=== PATIENT | female | born 1990 | race Caucasian/White ===

== ENCOUNTER 2019-04-11 12:25 | Emergency (ER) | payer MEDICAID, OTHER ==
[~2019-04-11] VITALS: Ht 149 cm; Wt 82.7 kg
[2019-04-11 13:08] LABS: BILIRUBIN,URINE NEGATIVE (NEGATIVE); CLARITY,URINE CLEAR; COLOR,URINE YELLOW; GLUCOSE, URINE (UA) NEGATIVE (NEGATIVE); KETONES,URINE NEGATIVE (NEGATIVE); LEUKOCYTE ESTERASE ,URINE 1+ (NEGATIVE); NITRITE,URINE POSITIVE (NEGATIVE); PH,URINE 5.5 (5-9); PROTEIN,URINE NEGATIVE (NEGATIVE)
[2019-04-11 13:50] LABS: BACTERIA,URINE LARGE /HPF; RBC,URINE 25-50 /HPF; WBC,URINE 25-50 /HPF
[2019-04-11] MEDS ORDERED: ONDANSETRON 4 MG (ZOFRAN) ORAL DISSOLVE TAB SL STA (13:50)
[2019-04-11] MEDS ORDERED: SULF1TAB35 PO (14:25)
--- NOTE | 2019-04-11 14:26 | ED GU-Female ---
General Chief Complaint: - Urinary Stated Complaint: KIDNEY PAIN Nursing Triage Note: RIGHT SIDED KIDNEY PAIN X2 DAYS. Nursing Sepsis Screen: No Definite Risk History of Present Illness Date Seen by Provider: Apr 11, 2019 Time Seen by Provider: 12:45 Initial Comments 28-year-old female presents with right lower abdomen and flank pain. She's had a history of kidney stones in the past. She denies any vomiting but some nausea today. She has tried Tylenol and ibuprofen with no improvement in her symptoms. Timing/Duration: yesterday Severity/Quality: mild Radiation: none Associated Symptoms: abdominal pain, dysuria; No fever/chills, No loss of bladder control; lower back pain (right flank), nausea/vomiting; No nocturia, No polyuria, No urinary frequency Allergies and Home Medications Allergies Coded Allergies: amoxicillin (Verified Allergy, Unknown, 04/11/19) oxycodone (Verified Allergy, Unknown, HIVES, 04/11/19) bismuth subsalicylate (Verified Adverse Reaction, Unknown, LIPS TURNED BLUE AND VOMITING, 04/11/19) ciprofloxacin (Verified Adverse Reaction, Unknown, VOMITING, 04/11/19) Home Medications Sulfamethoxazole/Trimethoprim 1 Each Tablet, 1 EACH PO BID Prescribed by: KRISH CLAY on 04/11/19 1345 Patient Home Medication List Home Medication List Reviewed: Yes Review of Systems Review of Systems Constitutional: no symptoms reported, see HPI Genitourinary: see HPI, dysuria, flank pain; denies hematuria All Other Systemes Reviewed Negative Unless Noted: Yes Past Balixsh-Rzpsby-Knercl Hx Past Med/Social Hx: Reviewed Nursing Past Med/Soc Hx Patient Social History Alcohol Use: Denies Use Recreational Drug Use: No Smoking Status: Never a Smoker Recent Foreign Travel: No Contact w/Someone Who Travel: No Recent Infectious Disease Expo: No Recent Hopitalizations: No Seasonal Allergies Seasonal Allergies: No Past Medical History Surgeries: Yes (D&C) Respiratory: No Cardiac: Yes Hypertension Neurological: No Genitourinary: Yes (INTERSTEM THERAPY ON BLADDER) Kidney Stones, UTI-Chronic Gastrointestinal: No Musculoskeletal: No Endocrine: No HEENT: No Cancer: No Psychosocial: No Physical Exam Vital Signs Vital Signs - First Documented 04/11/19 12:40 Temp 36.9 Pulse 86 Resp 16 B/P (MAP) 140/100 (113) Pulse Ox 98 O2 Delivery Room Air Capillary Refill : Less Than 3 Seconds Height, Weight, BMI Height: '" Weight: lbs. oz. kg; 37.00 BMI Method: General Appearance: WD/WN, no apparent distress Neck: non-tender, full range of motion, supple, normal inspection Cardiovascular: normal peripheral pulses, regular rate, rhythm Respiratory: chest non-tender, lungs clear, normal breath sounds Gastrointestinal: normal bowel sounds, non tender, soft; No distended, No guarding, No rebound, No tenderness Back: normal inspection, CVA tenderness (R) Neurologic/Psychiatric: no motor/sensory deficits, alert, normal mood/affect, oriented x 3 Progress/Results/Core Measures Suspected Sepsis Recent Fever Within 48 Hours: No Infection Criteria Present: Suspected New Infection New/Unexplained Altered Menta: No Sepsis Screen: No Definite Risk SIRS Temperature: Pulse: 86 Respiratory Rate: 16 Blood Pressure 140 /100 Mean: 113 Results/Orders Lab Results Laboratory Tests Test 04/11/19 12:55 Range/Units Urine Color YELLOW Urine Clarity CLEAR Urine pH 5.5 5-9 Urine Specific [place] >=1.030 1.016-1.022 Urine Protein NEGATIVE NEGATIVE Urine Glucose (UA) NEGATIVE NEGATIVE Urine Ketones NEGATIVE NEGATIVE Urine Nitrite POSITIVE H NEGATIVE Urine Bilirubin NEGATIVE NEGATIVE Urine Urobilinogen 0.2 < = 1.0 MG/DL Urine Leukocyte Esterase 1+ H NEGATIVE Urine RBC (Auto) NEGATIVE NEGATIVE Urine RBC 25-50 H /HPF Urine WBC 25-50 H /HPF Urine Crystals NONE /LPF Urine Bacteria LARGE H /HPF Urine Casts NONE /LPF Urine Mucus NEGATIVE /LPF Urine Culture Indicated YES My Orders Orders - KRISH CLAY Ua Culture If Indicated (04/11/19 12:31) Ondansetron Oral Dissolve Tab (Zofran (04/11/19 13:50) Abdomen/Kub 1view (04/11/19 13:51) Urine Culture (04/11/19 12:55) Vital Signs/I&O 04/11/19 04/11/19 12:40 14:39 Temp 36.9 36.9 Pulse 86 86 Resp 16 16 B/P (MAP) 140/100 (113) 140/100 (113) Pulse Ox 98 98 O2 Delivery Room Air Capillary Refill : Less Than 3 Seconds Blood Pressure Mean: 113 Diagnostic Imaging Diagonstic Imaging: Xray Plain Films/CT/US/NM/MRI: abdomen Comments NAME: KRISH AVINA [facility] REC#: [id number] PT STATUS: DEP ER : 1990 PHYSICIAN: KRISH CLAY ADMIT DATE: 04/11/19/ER Draft Date of Exam:04/11/19 ABDOMEN/KUB 1VIEW INDICATION: Kidney pain. EXAMINATION: Abdomen, two views, 04/11/2019. FINDINGS: There is a stimulator device overlying the right aspect of the pelvis. Air and stool is seen throughout the colon. No dilated loops of bowel. No free air. If there is concern for renal stones or ureteral stones CT imaging recommended. IMPRESSION: Nonobstructive bowel gas pattern, as above. Please see above discussion. Dictated on workstation # [id number] Dict: 04/11/19 1657 Trans: 04/11/19 1739 [facility] [id number] Interpreted by: MEJIA RIVERA MD Electronically signed by: Departure Impression Primary Impression: Urinary tract infection Qualified Codes: N30.01 - Acute cystitis with hematuria Disposition: HOME, SELF-CARE Condition: Improved Departure-Patient Inst. Decision time for Depature: 14:15 Referrals: NO,LOCAL PHYSICIAN (PCP/Family) Primary Care Physician Patient Instructions: Urinary Tract Infection, Adult (DC) Add. Discharge Instructions: Take antibiotics as prescribed. Drink 16 ounces of water every 2 hours while awake Empty bladder every 2 hours while awake. Alternate between ibuprofen 600 mg and Tylenol 650 mg every 4 hours for pain or fever. Drink 1 cup of cranberry juice or eat 1 cup of fresh blueberries daily. Follow-up with your primary care provider if symptoms are not improving or worsen. Return to the emergency department for new, urgent health care needs. All discharge instructions reviewed with patient and/or family. Voiced understanding. Scripts Sulfamethoxazole/Trimethoprim (Bactrim Ds Tablet) 1 Each Tablet 1 EACH PO BID, #10 TAB Prov: KRISH CLAY 04/11/19 KRISH CLAY Apr 11, 2019 14:26
[2019-04-11 14:39] VITALS: BP 140/100
--- NOTE | 2019-04-11 17:40 | Diagnostic Imaging Report ---
INDICATION: Kidney pain. EXAMINATION: Abdomen, two views, 04/11/2019. FINDINGS: There is a stimulator device overlying the right aspect of the pelvis. Air and stool is seen throughout the colon. No dilated loops of bowel. No free air. If there is concern for renal stones or ureteral stones CT imaging recommended. IMPRESSION: Nonobstructive bowel gas pattern, as above. Please see above discussion. Dictated by: Dictated on workstation # [id number]
== END 2019-04-11 14:39 | disposition home or self-care (01) ==
LOC: ER 12:28
DX: N39.0 Urinary tract infection, site not specified (principal); Z88.0 Allergy status to penicillin; Z88.5 Allergy status to narcotic agent; Z88.1 Allergy status to other antibiotic agents; Z88.8 Allergy status to other drugs, medicaments and biological substances; Z87.442 Personal history of urinary calculi
CPT/HCPCS: 74018; 81000; 84703; 87088; 87186

== ENCOUNTER 2019-06-07 19:16 | Emergency (ER) | payer MEDICAID ==
[~2019-06-07] VITALS: Ht 150 cm; Wt 84.7 kg
[~2019-06-07 19:16] MED LIST: SULF1TAB35 PO
--- OUTSIDE RECORDS SUMMARY | 2019-06-07 19:21 | XMS REPORT | Continuity of Care Document ---
Author Organization Unknown Address Unknown Phone Unavailable Allergies Active Description Code Type Severity Reaction Onset Reported/Identified Relationship to Patient Clinical Status Yes amoxicillin [id number] Drug Aller gy Unknown N/A 04/11/2019 Yes bismuth subsalicylate [id number] Drug Allergy Unknown LIPS TURNED [place] 10/2019 Yes ciprofloxacin [id number] Suman g Allergy Unknown VOMITING 04/11/2019 Yes oxycodone [id number] Drug Allergy Unknown HIVES 04/11/2019 Medications There is no data. Problems Date Dx Coded Attending Type Code Diagnosis Diagnosed By 04/15/2019 KRISH CLAY Ot N39.0 URINARY TRACT INFECTION, SITE NOT SPECIF 04/15/2019 KRISH CLAY Ot R10.31 RIGHT LOWER QUADRANT PAIN 04/15/2019 KRISH CLAY Ot Z87.442 PERSONAL HISTORY OF URINARY CALCULI 04/15/2019 KRISH CLAYP Ot Z88.0 ALLERGY STATUS TO PENICILLIN 04/15/2019 KRISH CLAYP Ot Z88.1 ALLERGY STATUS TO OTHER ANTIBIOTIC AGENT 04/15/2019 KRISH CLAYP Ot Z88.5 ALLERGY STATUS TO NARCOTIC AGENT STATUS 04/15/2019 KRISH CLAYP Ot Z88.8 ALLERGY STATUS TO OTH DRUG/MEDS/BIOL SUB Procedures There is no data. Results Test Result Range Complete urinalysis with reflex to cultu re - 04/11/19 12:55 Urine color determination YELLOW NRG Urine clarity determination CLEAR NR G Urine pH measurement by test strip 5.5 5-9 Specific gravity of urine by test strip >= 1.016-1.022 Urine protein assay by test strip, semi-quantitative NEGATIVE NEGATIVE Urine glucose detection by automated test strip NE GATIVE NEGATIVE Erythrocytes detection in urine sediment by light micr oscopy NEGATIVE NEGATIVE Urine ketones detection by automated test strip NE GATIVE NEGATIVE Urine nitrite detection by test strip POSITIVE NEGATIVE Urine total bilirubin detection by test strip NEGA TIVE NEGATIVE Urine urobilinogen measurement by automated test strip (mass/volume) 0.2 mg/dL < = 1.0 Urine leukocyte esterase detection by dipstick 1+ NEGATIVE Automated urine sediment erythrocyte cou nt by microscopy (number/high power field) [HPF] NRG Automated urine sediment leukocyte count by microscopy (number/high power field) [HPF] NRG Bacteria detection in urine sediment by light microsco py LARGE NRG Crystals detection in urine sediment by light microsco py NONE NRG Casts detection in urine sediment by light microscopy NONE NRG Mucus detection in urine sediment by light microscopy NEGATIVE NRG Complete urinalysis with reflex to culture YES NRG Bacterial urine culture - 04/11/19 12:55 Bacterial urine culture [id number] NRG COLONY COUNT >100,000/ML NRG FTX;REPORTABLE SUSCEPTIBILITY REPORTED 04/14 10:50 NRG FREE TEXT ENTRY 2 PRELIM RAPID ID TEST AT [facility] 04/12 9:40 NRG FREE TEXT ENTRY 3 ID CONFIRMED BY RML 04/13 17:05 NRG Dirithromycin susceptibility test by dis k diffusion - 04/11/19 12:55 Gentamicin susceptibility test by minimum inhibitory c oncentration <= NRG Trimethoprim/sulfamethoxazole susceptibi lity test by minimum inhibitoryconcentration > NRG Levofloxacin susceptibility test by minimum inhibitory concentration <= NRG Ampicillin susceptibility test by minimum inhibitory c oncentration > NRG Cefazolin susceptibility test by minimum inhibitory co ncentration 16 NRG Ceftriaxone susceptibility test by minimum inhibitory concentration <= NRG Ciprofloxacin susceptibility test by minimum inhibitor y concentration <= NRG Meropenem susceptibility test by minimum inhibitory co ncentration <= NRG Nitrofurantoin susceptibility test by mi nimum inhibitory concentration <= NRG Amoxicillin and clavulanate potassium susc MARII = NRG Encounters ACCT No. Visit Date/Time Discharge Status Pt. Type Provider Facility Loc./Unit Complaint [id number] 04/11/2019 12:28:00 020 14:39:00 DIS Outpatient KRISH CLAY [facility] ER KIDNEY PAIN
[2019-06-07 19:23] VITALS: BP 143/92
--- NOTE | 2019-06-07 19:39 | ED Lower Extremity ---
General Chief Complaint: Lower Extremity Stated Complaint: L KNEE PAIN History of Present Illness Date Seen by Provider: Jun 07, 2019 Time Seen by Provider: 19:25 Initial Comments 28-year-old female presents for left knee pain. She states that she's had chronic issues with her left knee, since childhood. Today it began hurting worse over the medial joint line, she tried ibuprofen at and Tylenol at 1600, with no relief in her symptoms. Straight he ice with no improvement. She denies any injuries today. Onset: this morning Pain/Injury Location: left knee Method of Injury: unknown Allergies and Home Medications Allergies Coded Allergies: amoxicillin (Verified Allergy, Unknown, 04/11/19) oxycodone (Verified Allergy, Unknown, HIVES, 04/11/19) bismuth subsalicylate (Verified Adverse Reaction, Unknown, LIPS TURNED BLUE AND VOMITING, 04/11/19) ciprofloxacin (Verified Adverse Reaction, Unknown, VOMITING, 04/11/19) Home Medications No Active Prescriptions or Reported Meds Patient Home Medication List Home Medication List Reviewed: Yes Review of Systems Constitutional: no symptoms reported, see HPI Musculoskeletal: see HPI, joint pain (left knee), joint swelling All Other Systems Reviewed Negative Unless Noted: Yes Past Cpabuxc-Wzvnya-Wvoqnu Hx Past Med/Social Hx: Reviewed Nursing Past Med/Soc Hx Patient Social History Alcohol Use: Denies Use Recreational Drug Use: No 2nd Hand Smoke Exposure: No Recent Foreign Travel: No Contact w/Someone Who Travel: No Recent Hopitalizations: No Physical Abuse: No Sexual Abuse: No Mistreated: No Fear: No Immunizations Up To Date Tetanus Booster (TDap): Unknown Seasonal Allergies Seasonal Allergies: No Past Medical History Surgeries: Yes (D&C) Orthopedic Respiratory: No Cardiac: Yes Hypertension Neurological: No Genitourinary: Yes Kidney Stones, UTI-Chronic Gastrointestinal: No Musculoskeletal: No Endocrine: No HEENT: No Cancer: No Psychosocial: No Integumentary: No Blood Disorders: No Physical Exam Vital Signs Vital Signs - First Documented 06/07/19 19:23 Temp 36.5 Pulse 79 Resp 16 B/P (MAP) 143/92 (109) Pulse Ox 99 O2 Delivery Room Air Capillary Refill : Height, Weight, BMI Height: '" Weight: lbs. oz. kg; 37.00 BMI Method: General Appearance: WD/WN, no apparent distress Cardiovascular: normal peripheral pulses, regular rate, rhythm Respiratory: chest non-tender, lungs clear, normal breath sounds Knees: left knee normal inspection, left knee normal range of motion, left knee bone tenderness (medial joint line), left knee joint effusion (small), left knee soft tissue tenderness (medial) Neurologic/Psychiatric: no motor/sensory deficits, alert, normal mood/affect, oriented x 3 Skin: normal color, warm/dry Progress/Results/Core Measures Results/Orders My Orders Orders - KRISH CLAY Knee, Left, 3 Views (06/07/19 19:30) Ketorolac Injection (Toradol Injection) (06/07/19 19:41) Vital Signs/I&O 06/07/19 19:23 Temp 36.5 Pulse 79 Resp 16 B/P (MAP) 143/92 (109) Pulse Ox 99 O2 Delivery Room Air Diagnostic Imaging Diagonstic Imaging: Xray Plain Films/CT/US/NM/MRI: knee Comments NAME: KRISH AVINA [facility] REC#: [id number] PT STATUS: REG ER : 1990 PHYSICIAN: KRISH CLAY ADMIT DATE: 06/07/19/ER Signed Date of Exam:06/07/19 KNEE, LEFT, 3 VIEWS INDICATION: Left knee pain. EXAMINATION: Three views of the left knee. FINDINGS: Nonweightbearing images. There is no fracture or dislocation. Articulating surfaces are smooth. Joint space is well maintained. No evidence of osteochondritis dissecans. IMPRESSION: Negative left knee. Dictated by: Dictated on workstation # [id number] Dict: 06/07/191955 Trans: 06/07/192005 [id number] Interpreted by: VISH ANDERSON MD Electronically signed by: VISH ANDERSON MD 06/07/192005 Reviewed: Reviewed by Me Departure Impression Primary Impression: Left knee pain Qualified Codes: M25.562 - Pain in left knee Disposition: HOME, SELF-CARE Condition: Improved Departure-Patient Inst. Decision time for Depature: 20:05 Referrals: [facility] [place] NO,LOCAL PHYSICIAN (PCP) Primary Care Physician IRMA YUAN MD Patient Instructions: Knee Pain (DC) Add. Discharge Instructions: Alternate between ibuprofen 600 mg and Tylenol 650 mg every 4 hours for pain. Ice to left knee 20 minutes every 2 hours while awake. Follow-up with orthopedics if symptoms are not improving or worsen. Use an [place] wrap. Return to the emergency department for new, urgent health care needs. All discharge instructions reviewed with patient and/or family. Voiced understanding. Scripts No Active Prescriptions or Reported Meds KRISH CLAY Jun 07, 2019 19:39
[2019-06-07] MEDS ORDERED: KETOROLAC 60 MG/2 ML VIAL IM STA (19:41)
--- NOTE | 2019-06-07 19:58 | Diagnostic Imaging Report ---
INDICATION: Left knee pain. EXAMINATION: Three views of the left knee. FINDINGS: Nonweightbearing images. There is no fracture or dislocation. Articulating surfaces are smooth. Joint space is well maintained. No evidence of osteochondritis dissecans. IMPRESSION: Negative left knee. Dictated by: Dictated on workstation # [id number]
== END 2019-06-07 20:19 | disposition home or self-care (01) ==
LOC: EDUNIT# 19:16 → ER 19:17
DX: M25.562 Pain in left knee (principal); Z88.0 Allergy status to penicillin; Z88.5 Allergy status to narcotic agent; Z88.1 Allergy status to other antibiotic agents; Z88.8 Allergy status to other drugs, medicaments and biological substances
CPT/HCPCS: 73562

== ENCOUNTER 2019-07-15 22:08 | Emergency (ER) | payer MEDICAID ==
[~2019-07-15] VITALS: Ht 149.8 cm; Wt 83.9 kg
--- OUTSIDE RECORDS SUMMARY | 2019-07-15 22:14 | XMS REPORT | Continuity of Care Document ---
Author Organization Unknown Address Unknown Phone Unavailable Allergies Active Description Code Type Severity Reaction Onset Reported/Identified Relationship to Patient Clinical Status Yes amoxicillin [id number] Drug Aller gy Unknown N/A 04/11/2019 Yes bismuth subsalicylate [id number] Drug Allergy Unknown LIPS TURNED [place] 10/2019 Yes ciprofloxacin [id number] Suman g Allergy Unknown VOMITING 04/11/2019 Yes oxycodone [id number] Drug Allergy Unknown HIVES 04/11/2019 Medications There is no data. Problems Date Dx Coded Attending Type Code Diagnosis Diagnosed By 04/11/2019 OBED KRISH CHART READER Ot N39.0 URINARY TRACT INFECTION, SITE NOT SPECIF 04/11/2019 OBED, KRISH CHART READER Ot R10.31 RIGHT LOWER QUADRANT PAIN 04/11/2019 OBED, KRISH CHART READER Ot Z87.442 PERSONAL HISTORY OF URINARY CALCULI 04/11/2019 OBED, KRISH CHART READER Ot Z88.0 ALLERGY STATUS TO PENICILLIN 04/11/2019 OBED, KRISH CHART READER Ot Z88.1 ALLERGY STATUS TO OTHER ANTIBIOTIC AGENT 04/11/2019 OBED, KRISH CHART READER Ot Z88.5 ALLERGY STATUS TO NARCOTIC AGENT STATUS 04/11/2019 OBED, KRISH CHART READER Ot Z88.8 ALLERGY STATUS TO OTH DRUG/MEDS/BIOL SUB 04/15/2019 OBED, KRISH CHART READER Ot N39.0 URINARY TRACT INFECTION, SITE NOT SPECIF 04/15/2019 OBED, KRISH CHART READER Ot R10.31 RIGHT LOWER QUADRANT PAIN 04/15/2019 OBED, KRISH CHART READER Ot Z87.442 PERSONAL HISTORY OF URINARY CALCULI 04/15/2019 OBED, KRISH CHART READER Ot Z88.0 ALLERGY STATUS TO PENICILLIN 04/15/2019 OBED, KRISH CHART READER Ot Z88.1 ALLERGY STATUS TO OTHER ANTIBIOTIC AGENT 04/15/2019 OBED, KRISH CHART READER Ot Z88.5 ALLERGY STATUS TO NARCOTIC AGENT STATUS 04/15/2019 OBED, KRISH CHART READER Ot Z88.8 ALLERGY STATUS TO OTH DRUG/MEDS/BIOL SUB 06/10/2019 OBED, KRISH CHART READER Ot M25.562 PAIN IN LEFT KNEE 06/10/2019 OBED, KRISH CHART READER Ot Z88.0 ALLERGY STATUS TO PENICILLIN 06/10/2019 OBED, KRISH CHART READER Ot Z88.1 ALLERGY STATUS TO OTHER ANTIBIOTIC AGENT 06/10/2019 OBED, KRISH CHART READER Ot Z88.5 ALLERGY STATUS TO NARCOTIC AGENT STATUS 06/10/2019 OBED, KRISH CHART READER Ot Z88.8 ALLERGY STATUS TO OTH DRUG/MEDS/BIOL SUB 06/10/2019 OBED, KRISH CHART READER Ot M25.562 PAIN IN LEFT KNEE 06/10/2019 OBED, KRISH CHART READER Ot Z88.0 ALLERGY STATUS TO PENICILLIN 06/10/2019 OBED, KRISH CHART READER Ot Z88.1 ALLERGY STATUS TO OTHER ANTIBIOTIC AGENT 06/10/2019 OBED, KRISH CHART READER Ot Z88.5 ALLERGY STATUS TO NARCOTIC AGENT STATUS 06/10/2019 OBED, KRISH CHART READER Ot Z88.8 ALLERGY STATUS TO OTH DRUG/MEDS/BIOL [...] culture - 04/11/19 12:55 Bacterial urine culture [id number] NRG COLONY COUNT >100,000/ML NRG FTX;REPORTABLE SUSCEPTIBILITY REPORTED 04/14 10:50 NRG FREE TEXT ENTRY 2 PRELIM RAPID ID TEST AT [facility] 04/12 9:40 NRG FREE TEXT ENTRY 3 [...] Status Pt. Type Provider Facility Loc./Unit Complaint [id number] 06/07/2019 19:17:00 20:19:00 DIS Outpatient KRISH CLAY [facility] ER L KNEE PAIN [id number] 04/11/2019 12:28:00 14:39:00 DIS Emergency KRISH CLAY [facility] ER KIDNEY PAIN [id number] 07/15/2019 22:10:[address] Emergency FEI DOHIGINIO K [facility] ER HEADACHE,DIZZY
[2019-07-15 23:07] LABS: BILIRUBIN,URINE NEGATIVE (NEGATIVE); CLARITY,URINE CLEAR; COLOR,URINE YELLOW; GLUCOSE, URINE (UA) NEGATIVE (NEGATIVE); KETONES,URINE NEGATIVE (NEGATIVE); LEUKOCYTE ESTERASE ,URINE NEGATIVE (NEGATIVE); NITRITE,URINE NEGATIVE (NEGATIVE); PH,URINE 5.5 (5-9); PROTEIN,URINE NEGATIVE (NEGATIVE)
[2019-07-15 23:19] LABS: BACTERIA,URINE TRACE /HPF; CALCIUM OXALATE CRYSTALS,UR LARGE /LPF; SQUAMOUS EPITHELIAL CELL,UR 25-50 /HPF
[2019-07-15 23:21] LABS: AMPHETAMINE SCREEN, URINE NEGATIVE (NEGATIVE); BARBITURATE SCREEN URINE NEGATIVE (NEGATIVE); BENZODIAZEPINES SCREEN URINE NEGATIVE (NEGATIVE); CANNABINOID SCREEN, URINE NEGATIVE (NEGATIVE); COCAINE SCREEN URINE NEGATIVE (NEGATIVE); METHADONE STAT NEGATIVE (NEGATIVE); METHAMPHETAMINE SCREEN URINE S NEGATIVE (NEGATIVE); OPIATE SCREEN URINE NEGATIVE (NEGATIVE); OXYCODONE STAT NEGATIVE (NEGATIVE); PROPOXYPHENE STAT NEGATIVE (NEGATIVE); TRICYCLIC ANTIDEPRESSANTS SCRE NEGATIVE (NEGATIVE)
[2019-07-15 23:39] LABS: BASOPHILS % (AUTO) 0 % (0-10); EOSINOPHILS # (AUTO) 0.3 10^3/uL (0.0-0.3); EOSINOPHILS % (AUTO) 2 % (0-10); HEMATOCRIT 37 % (35-52); HEMOGLOBIN 11.7 G/DL (11.5-16.0); LYMPHOCYTES # (AUTO) 4.1 X 10^3 (1.0-4.0); LYMPHOCYTES % (AUTO) 37 % (12-44); MEAN CORPUSCULAR HEMOGLOBIN 25 PG (25-34); MEAN CORPUSCULAR HGB CONC 32 G/DL (32-36); MEAN CORPUSCULAR VOLUME 80 FL (80-99); MEAN PLATELET VOLUME 10.5 FL (7.4-10.4); MONOCYTES # (AUTO) 0.6 X 10^3 (0.0-1.0); MONOCYTES % (AUTO) 5 % (0-12); NEUTROPHILS # (AUTO) 6.1 X 10^3 (1.8-7.8); NEUTROPHILS % (AUTO) 55 % (42-75); PLATELET COUNT 259 10^3/uL (130-400); RED CELL DISTRIBUTION WIDTH 14.8 % (10.0-14.5)
[2019-07-15] MEDS ORDERED: LABETALOL HCL 20 MG/4 ML VIAL IV ONE (23:45)
[2019-07-15 23:52] LABS: ALBUMIN 4.2 GM/DL (3.2-4.5); CHLORIDE 107 MMOL/L (98-107); POTASSIUM 3.7 MMOL/L (3.6-5.0); SODIUM 140 MMOL/L (135-145)
[2019-07-15 23:53] LABS: CALCIUM 8.9 MG/DL (8.5-10.1)
[2019-07-15 23:54] LABS: GLUCOSE 166 MG/DL (70-105); PROTHROMBIN TIME PATIENT 13.2 SEC (12.2-14.7); TOTAL PROTEIN 7.8 GM/DL (6.4-8.2)
[2019-07-15 23:55] LABS: CARBON DIOXIDE 21 MMOL/L (21-32)
[2019-07-15 23:56] LABS: BILIRUBIN,TOTAL 0.3 MG/DL (0.1-1.0)
[2019-07-15 23:58] LABS: ALKALINE PHOSPHATASE 103 U/L (40-136); CREATININE SERUM 0.77 MG/DL (0.60-1.30); GFR ESTIMATED > 60
[2019-07-15 23:59] LABS: BUN/CREATININE RATIO 9
[2019-07-16] LABS: MAGNESIUM 1.9 MG/DL (1.6-2.4)
[2019-07-16 00:01] VITALS: BP 158/99
[2019-07-16 00:01] LABS: ALANINE AMINOTRANSFERASE 63 U/L (0-55)
[2019-07-16 00:22] LABS: TSH (THYROID ANALYZER) 2.85 UIU/ML (0.35-4.94)
--- NOTE | 2019-07-16 00:23 | ED Headache ---
General Chief Complaint: Head/Cervical Problems Stated Complaint: HEADACHE,DIZZY Nursing Triage Note: C/O HEADACHE, STATES SHE HAS HAD HEADACHES BEFORE WHEN HER BLOOD PRESSURE IS HIGH. Nursing Sepsis Screen: No Definite Risk Source: patient History of Present Illness Date Seen by Provider: July 15, 2019 Time Seen by Provider: 22:45 Initial Comments PT ARRIVES VIA POV FROM HOME C/O HEADACHE SINCE YESTERDAY-FRONTAL AREA/FOREHEAD C/O DIZZINESS SINCE YESTERDAY TOOK IBUPROFEN 1000 MG TODAY AND TYLENOL 500 MG AT [address]--NO RELIEF HAS HAD "SLIGHT" CHEST PAIN SINCE YESTERDAY--SHE STATES "I JUST IGNORE IT" NO VISION CHANGES NO NAUSEA/VOMITING NO PARESTHESIAS OR MOTOR DEFICITS NO NECK PAIN OR STIFFNESS NO FEVER/SWEATS/CHILLS NO RECENT ILLNESS, NO URI/SINUS SYMPTOMS SOMETIMES HER HEART FEELS LIKE IT IS BEATING FAST OR HARD, BUT NOT NOW. HAD SAME TYPE HEADACHES WHILE SHE WAS IN 2017--HAD INDUCED HYPERTENSION, WELL GESTATIONAL DIABETES--WAS ON BLOOD PRESSURE MEDICATIONS AND INSULIN WHILE SHE WAS STATES SHE NEVER FOLLOWED UP WITH ANYONE SINCE THE OF HER CHILD. STATES SHE "JUST MOVED HERE 2 MONTHS AGO" FROM [facility], [facility]-19 PANDEMIC HAS BEEN TO THIS FACILITY 3 TIMES SINCE APRIL FOR VARIOUS COMPLAINTS STATES SHE "JUST GOT HER MEDICAID" SO DECIDED TO COME HERE JESSICA PT HAS A "NEW PATIENT" APPOINTMENT TOMORROW AT [facility], ALTHOUGH SHE HAS BEEN THERE TO WALK IN CLINIC PCP: [facility] Allergies and Home Medications Allergies Coded Allergies: amoxicillin (Verified Allergy, Unknown, 04/11/19) oxycodone (Verified Allergy, Unknown, HIVES, 04/11/19) bismuth subsalicylate (Verified Adverse Reaction, Unknown, LIPS TURNED BLUE AND VOMITING, 04/11/19) ciprofloxacin (Verified Adverse Reaction, Unknown, VOMITING, 04/11/19) Home Medications No Active Prescriptions or Reported Meds Patient Home Medication List Home Medication List Reviewed: Yes Review of Systems Review of Systems Constitutional: see HPI; No chills, No diaphoresis; dizziness; No fever, No malaise, No weakness Eyes: No Symptoms Reported; Denies Blurred Vision, Denies Decreased Acuity, Denies Photophobia Ears, Nose, Mouth, Throat: no symptoms reported; denies ear pain, denies nose discharge, denies throat pain Respiratory: no symptoms reported; No cough, No short of breath, No wheezing Cardiovascular: see HPI, chest pain; No edema; palpitations; No syncope, No vascular heart diseas Gastrointestinal: no symptoms reported; No abdominal pain, No nausea, No vomiting Genitourinary: no symptoms reported : No LMP: July 03, 2019 (NO CONTROL) Musculoskeletal: no symptoms reported; No back pain, No neck pain Skin: no symptoms reported; No rash Psychiatric/Neurological: See HPI, Headache; Denies Numbness, Denies Paresthesia, Denies Seizure, Denies Tingling, Denies Tremors, Denies Weakness Past [id number] Hx Past Med/Social Hx: Reviewed and Corrections made Patient Social History Alcohol Use: Denies Use Recreational Drug Use: No Smoking Status: Never a Smoker 2nd Hand Smoke Exposure: No Recent Foreign Travel: No Contact w/Someone Who Travel: No Recent Infectious Disease Expo: No Recent Hopitalizations: No Physical Abuse: No Sexual Abuse: No Mistreated: No Fear: No Immunizations Up To Date Tetanus Booster (TDap): Unknown Seasonal Allergies Seasonal Allergies: No Past Medical History Surgeries: Yes (D&C; BLADDER STIMULATOR; X 1) Bladder Surgery, Section Respiratory: No Cardiac: Yes ( INDUCED HTN 2016--WAS ON MEDICATIONS) Hypertension Neurological: No : No Last Menstrual Period: Jun 24, 2019 Reproductive Disorders: No Genitourinary: Yes (BLADDER STIMULATOR IN PLACE) Kidney Stones, UTI-Chronic Gastrointestinal: No Musculoskeletal: Yes (CHRONIC KNEE PAIN ) Endocrine: Yes (GESTATIONAL DIABETES 2016--WAS ON INSULIN) HEENT: No Cancer: No Psychosocial: Yes ADD/ADHD Integumentary: No Blood Disorders: No Physical Exam Vital Signs Vital Signs - First Documented 07/15/19 22:47 Temp 36.6 Pulse 106 Resp 18 B/P (MAP) 162/104 (123) Pulse Ox 99 Capillary Refill : Less Than 3 Seconds Height, Weight, BMI Height: '" Weight: lbs. oz. kg; 37.00 BMI Method: General Appearance: WD/WN, no apparent distress HEENT: PERRL/EOMI, normal ENT inspection, TMs normal, pharynx normal Neck: non-tender, full range of motion, supple, normal inspection; No carotid bruit Cardiovascular: normal peripheral pulses, regular rate, rhythm, no edema, no JVD, no murmur Respiratory: normal breath sounds, no respiratory distress, no accessory muscle use Gastrointestinal: normal bowel sounds, non tender, soft, no organomegaly Back: normal inspection, no CVA tenderness Extremities: normal range of motion, non-tender, normal inspection, no pedal edema, no calf tenderness, normal capillary refill Psychiatric: alert, oriented x 3 Crainal Nerves: normal hearing, normal speech, PERRL Coordination/Gait: normal gait Motor/Sensory: no motor deficit, no sensory deficit, no pronator drift Skin: normal color, warm/dry; No rash Progress/Results/Core Measures Results/Orders Lab Results Laboratory Tests Test 07/15/19 23:00 07/15/19 23:10 Range/Units Urine Color YELLOW Urine Clarity CLEAR Urine pH 5.5 5-9 Urine Specific [place] >=1.030 1.016-1.022 Urine Protein NEGATIVE NEGATIVE Urine Glucose (UA) NEGATIVE NEGATIVE Urine Ketones NEGATIVE NEGATIVE Urine Nitrite NEGATIVE NEGATIVE Urine Bilirubin NEGATIVE NEGATIVE Urine Urobilinogen 0.2 < = 1.0 MG/DL Urine Leukocyte Esterase NEGATIVE NEGATIVE Urine RBC (Auto) NEGATIVE NEGATIVE Urine RBC 2-5 H /HPF Urine WBC 10-25 H /HPF Urine Squamous Epithelial Cells 25-50 H /HPF Urine Crystals PRESENT H /LPF Urine Calcium Oxalate Crystals LARGE H /LPF Urine Bacteria TRACE /HPF Urine Casts NONE /LPF Urine Mucus MODERATE H /LPF Urine Culture Indicated NO Urine Test NEGATIVE NEGATIVE Urine Opiates Screen NEGATIVE NEGATIVE Urine Oxycodone Screen NEGATIVE NEGATIVE Urine Methadone Screen NEGATIVE NEGATIVE Urine Propoxyphene Screen NEGATIVE NEGATIVE Urine Barbiturates Screen NEGATIVE NEGATIVE Ur Tricyclic Antidepressants Screen NEGATIVE NEGATIVE Urine Phencyclidine Screen NEGATIVE NEGATIVE Urine Amphetamines Screen NEGATIVE NEGATIVE Urine Methamphetamines Screen NEGATIVE NEGATIVE Urine Benzodiazepines Screen NEGATIVE NEGATIVE Urine Cocaine Screen NEGATIVE NEGATIVE Urine Cannabinoids Screen NEGATIVE NEGATIVE White Blood Count 11.0 4.3-11.0 10^3/uL Red Blood Count 4.63 4.35-5.85 10^6/uL Hemoglobin 11.7 11.5-16.0 G/DL Hematocrit 37 35-52 % Mean Corpuscular Volume 80 80-99 FL Mean Corpuscular Hemoglobin 25 25-34 PG Mean Corpuscular Hemoglobin Concent 32 32-36 G/DL Red Cell Distribution Width 14.8 H 10.0-14.5 % Platelet Count 259 130-400 10^3/uL Mean Platelet Volume 10.5 H 7.4-10.4 FL Neutrophils (%) (Auto) 55 42-75 % Lymphocytes (%) (Auto) 37 12-44 % Monocytes (%) (Auto) 5 0-12 % Eosinophils (%) (Auto) 2 0-10 % Basophils (%) (Auto) 0 0-10 % Neutrophils # (Auto) 6.1 1.8-7.8 X 10^3 Lymphocytes # (Auto) 4.1 H 1.0-4.0 X 10^3 Monocytes # (Auto) 0.6 0.0-1.0 X 10^3 Eosinophils # (Auto) 0.3 0.0-0.3 10^3/uL Basophils # (Auto) 0.0 0.0-0.1 10^3/uL Prothrombin Time 13.2 12.2-14.7 SEC INR Comment 1.0 0.8-1.4 Activated Partial Thromboplast Time 31 24-35 SEC Sodium Level 140 135-145 MMOL/L Potassium Level 3.7 3.6-5.0 MMOL/L Chloride Level 107 98-107 MMOL/L Carbon Dioxide Level 21 21-32 MMOL/L Anion Gap 12 5-14 MMOL/L Blood Urea Nitrogen 7 7-18 MG/DL Creatinine 0.77 0.60-1.30 MG/DL Estimat Glomerular Filtration Rate > 60 BUN/Creatinine Ratio 9 Glucose Level 166 H 70-105 MG/DL Calcium Level 8.9 8.5-10.1 MG/DL Corrected Calcium 8.7 8.5-10.1 MG/DL Magnesium Level 1.9 1.6-2.4 MG/DL Total Bilirubin 0.3 0.1-1.0 MG/DL Aspartate Amino Transf (AST/SGOT) 37 H 5-34 U/L Alanine Aminotransferase (ALT/SGPT) 63 H 0-55 U/L Alkaline Phosphatase 103 40-136 U/L Troponin I < 0.028 <0.028 NG/ML Total Protein 7.8 6.4-8.2 GM/DL Albumin 4.2 3.2-4.5 GM/DL TSH [place] Testing 2.85 0.35-4.94 UIU/ML My Orders Orders - HIGINIO ENAMORADO DO Ed Iv/Invasive Line Start (07/15/19 22:55) Urine Bedside (07/15/19 22:55) Ekg Tracing (07/15/19 22:55) Monitor-Rhythm Ecg Trace Only (07/15/19 22:55) Ct Head Wo (07/15/19 22:55) Cbc With Automated Diff (07/15/19 22:55) Comprehensive Metabolic Panel (07/15/19 22:55) Drug Screen Stat (Urine) (07/15/19 22:55) Magnesium (07/15/19 22:55) Protime With Inr (07/15/19 22:55) Partial Thromboplastin Time (07/15/19 22:55) Thyroid Analyzer (07/15/19 22:55) Ua Culture If Indicated (07/15/19:55) Troponin I (07/15/19 22:55) Chest Pa/Lat (2 View) (07/15/19 22:55) Hcg,Qualitative Urine (07/15/19 23:31) Labetalol Injection (Normodyne Injection (07/15/19 23:45) Ketorolac Injection (Toradol Injection) (07/16/19 00:45) Medications Given in ED Current Medications Medications Dose Ordered Sig/Yang Route Start Time Stop Time Status Last Admin Dose Admin Ketorolac Tromethamine 30 mg ONCE ONCE IVP 07/16/19 00:45 07/16/19 00:43 DC 07/16/19 00:42 30 MG Labetalol HCl 20 mg ONCE ONCE IV 07/15/19 23:45 07/15/19 23:46 DC 07/16/19 00:01 10 MG Vital Signs/I&O 07/15/19 07/16/19 07/16/19 07/16/19 22:47 00:01 00:31 00:46 Temp 36.6 Pulse 106 93 Resp 18 16 B/P (MAP) 162/104 (123) 158/99 (118) 127/83 (98) 127/83 (98) Pulse Ox 99 99 Blood Pressure Mean: 118 Progress Progress Note : Progress Note GIVEN LABETALOL AND BP DOWN BUT PT STATES NO RELIEF OF HEADACHE GIVEN TORADOL AFTER RECEIVING NORMAL HEAD CT REPORT--HEADACHE IMPROVING AT DISMISSAL Initial ECG Impression Date: July 15, 2019 Initial ECG Impression Time: 23:11 Initial ECG Rate: 93 Initial ECG Rhythm: Normal Sinus Initial ECG Impression: Normal Initial ECG Comparisson: No Previous ECG Available Diagnostic Imaging Comments CXR---NO ACUTE PROCESS, PENDING RADIOLOGIST REVIEW CT HEAD--NO ACUTE PROCESS, PER [facility] VIA FAX AT 0018 Reviewed: Reviewed by Me Departure Impression Primary Impression: Headache Additional Impressions: HTN (hypertension) Hyperglycemia Disposition: HOME, SELF-CARE Condition: Stable Departure-Patient Inst. Referrals: [facility] Patient Instructions: Headache, Adult (DC), Hyperglycemia, Adult (DC), High Blood Pressure (DC), Heart Healthy Diet, Blood Glucose Monitoring Add. Discharge Instructions: HOME, REST KEEP YOUR APPOINTMENT TOMORROW AT [facility] All discharge instructions reviewed with patient and/or family. Voiced understanding. Scripts No Active Prescriptions or Reported Meds HIGINIO ENAMORADO DO July 16, 2019 00:23
[2019-07-16 00:31] VITALS: BP 127/83
[2019-07-16] MEDS ORDERED: KETOROLAC 30 MG/ML VIAL IVP ONE (00:45)
[2019-07-16 00:46] VITALS: BP 127/83
--- NOTE | 2019-07-16 06:46 | Diagnostic Imaging Report ---
PROCEDURE: CT head without contrast. TECHNIQUE: Multiple contiguous axial images were obtained through the brain without the use of intravenous contrast. Auto Exposure Controls were utilized during the CT exam to meet ALARA standards for radiation dose reduction. INDICATION: Headache COMPARISON STUDY: None FINDINGS: Noncontrast CT scanning of the head demonstrates no mass effect, midline shift, hemorrhage or extra-axial fluid collections. Unger-white matter differentiation is normal. Bone windows appear normal. IMPRESSION: Normal CT scan of the head. Findings agree with the [facility] report. Dictated by: Dictated on workstation # [id number]
--- NOTE | 2019-07-16 07:56 | Diagnostic Imaging Report ---
INDICATION: Headache, elevated blood pressure. FINDINGS: Frontal and lateral views of the chest demonstrate the lungs to be clear. The heart, mediastinum and pulmonary vascularity and visualized bony thorax are normal. IMPRESSION: Normal chest. Dictated by: Dictated on workstation # [id number]
== END 2019-07-16 00:43 | disposition home or self-care (01) ==
LOC: EDUNIT# 22:08 → ER 22:10
DX: I10 Essential (primary) hypertension (principal); R73.9 Hyperglycemia, unspecified; Z88.0 Allergy status to penicillin; Z88.1 Allergy status to other antibiotic agents; Z88.5 Allergy status to narcotic agent; Z88.8 Allergy status to other drugs, medicaments and biological substances
CPT/HCPCS: 36415; 70450; 71046; 80053; 80306; 81000; 83735; 84443; 84484; 84703; 85025; 85610; 85730; 93005; 93041; 96374; 96375

== ENCOUNTER 2019-08-01 20:01 | Emergency (ER) | payer MEDICAID ==
[~2019-08-01] VITALS: Ht 149 cm; Wt 83.9 kg
--- OUTSIDE RECORDS SUMMARY | 2019-08-01 20:06 | XMS REPORT | Continuity of Care Document ---
Author Organization Unknown Address Unknown Phone Unavailable Allergies Active Description Code Type Severity Reaction Onset Reported/Identified Relationship to Patient Clinical Status Yes amoxicillin [id number] Drug Aller gy Unknown N/A 04/11/2019 Yes bismuth subsalicylate [id number] Drug Allergy Unknown LIPS TURNED ADAMA 10/2019 Yes ciprofloxacin [id number] Suman g Allergy Unknown VOMITING 04/11/2019 Yes oxycodone [id number] Drug Allergy Unknown HIVES 04/11/2019 Medications There is no data. Problems Date Dx Coded Attending Type Code Diagnosis Diagnosed By 04/11/2019 OBED YAMILET MINI SHIFTER Ot N39.0 URINARY TRACT INFECTION, SITE NOT SPECIF 04/11/2019 OBED, YAMILET MINI SHIFTER Ot R10.31 RIGHT LOWER QUADRANT PAIN 04/11/2019 OBED, YAMILET MINI SHIFTER Ot Z87.442 PERSONAL HISTORY OF URINARY CALCULI 04/11/2019 OBED, YAMILET MINI SHIFTER Ot Z88.0 ALLERGY STATUS TO PENICILLIN 04/11/2019 OBED, YAMILET MINI SHIFTER Ot Z88.1 ALLERGY STATUS TO OTHER ANTIBIOTIC AGENT 04/11/2019 OBED, YAMILET MINI SHIFTER Ot Z88.5 ALLERGY STATUS TO NARCOTIC AGENT STATUS 04/11/2019 OBED, YAMILET MINI SHIFTER Ot Z88.8 ALLERGY STATUS TO OT DRUG/MEDS/BIOL SUB 04/15/2019 OBED, YAMILET MINI SHIFTER Ot N39.0 URINARY TRACT INFECTION, SITE NOT SPECIF 04/15/2019 OBED, YAMILET MINI SHIFTER Ot R10.31 RIGHT LOWER QUADRANT PAIN 04/15/2019 OBED, YAMILET MINI SHIFTER Ot Z87.442 PERSONAL HISTORY OF URINARY CALCULI 04/15/2019 OBED, YAMILET MINI SHIFTER Ot Z88.0 ALLERGY STATUS TO PENICILLIN 04/15/2019 OBED, YAMILET MINI SHIFTER Ot Z88.1 ALLERGY STATUS TO OTHER ANTIBIOTIC AGENT 04/15/2019 OBED, YAMILET MINI SHIFTER Ot Z88.5 ALLERGY STATUS TO NARCOTIC AGENT STATUS 04/15/2019 OBED, YAMILET MINI SHIFTER Ot Z88.8 ALLERGY STATUS TO OTH DRUG/MEDS/BIOL SUB 06/07/2019 OBED, YAMILET MINI SHIFTER Ot M25.562 PAIN IN LEFT KNEE 06/07/2019 OBED, YAMILET MINI SHIFTER Ot Z88.0 ALLERGY STATUS TO PENICILLIN 06/07/2019 OBED, YAMILET MINI SHIFTER Ot Z88.1 ALLERGY STATUS TO OTHER ANTIBIOTIC AGENT 06/07/2019 OBED, YAMILET MINI SHIFTER Ot Z88.5 ALLERGY STATUS TO NARCOTIC AGENT STATUS 06/07/2019 OBED, YAMILET MINI SHIFTER Ot Z88.8 ALLERGY STATUS TO OTH DRUG/MEDS/BIOL SUB 06/10/2019 OBED, YAMILET MINI SHIFTER Ot M25.562 PAIN IN LEFT KNEE 06/10/2019 OBED, YAMILET MINI SHIFTER Ot Z88.0 ALLERGY STATUS TO PENICILLIN 06/10/2019 OBED, YAMILET MINI SHIFTER Ot Z88.1 ALLERGY STATUS TO OTHER ANTIBIOTIC AGENT 06/10/2019 OBED, YAMILET MINI SHIFTER Ot Z88.5 ALLERGY STATUS TO NARCOTIC AGENT STATUS 06/10/2019 OBED, YAMILET MINI SHIFTER Ot Z88.8 ALLERGY STATUS TO OTH DRUG/MEDS/BIOL SUB 06/10/2019 OBED, YAMILET MINI SHIFTER Ot M25.562 PAIN IN LEFT KNEE 06/10/2019 OBED, YAMILET MINI SHIFTER Ot Z88.0 ALLERGY STATUS TO PENICILLIN 06/10/2019 OBED, YAMILET MINI SHIFTER Ot Z88.1 ALLERGY STATUS TO OTHER ANTIBIOTIC AGENT 06/10/2019 OBED, YAMILET MINI SHIFTER Ot Z88.5 ALLERGY STATUS TO NARCOTIC AGENT STATUS 06/10/2019 OBED, YAMILET MINI SHIFTER Ot Z88.8 ALLERGY STATUS TO OTH DRUG/MEDS/BIOL SUB 07/20/2019 FEI DO, HIGINIO K Ot I10 ESSENTIAL (PRIMARY) HYPERTENSION 07/20/2019 FEI DO, HIGINIO K Ot R51 HEADACHE 07/20/2019 FEI DO, HIGINIO K Ot R73.9 HYPERGLYCEMIA, UNSPECIFIED 07/20/2019 FEI DO, HIGINIO K Ot Z88.0 ALLERGY STATUS TO PENICILLIN 07/20/2019 FEI DO, HIGINIO K Ot Z88.1 ALLERGY STATUS TO OTHER ANTIBIOTIC AGENT 07/20/2019 FEI DO, HIGINIO K Ot Z88.5 ALLERGY STATUS TO NARCOTIC AGENT STATUS 07/20/2019 FEI DO, HIGINIO K Ot Z88.8 ALLERGY STATUS TO OTH DRUG/MEDS/BIOL SUB 07/22/2019 FEI DO, HIGINIO K Ot I10 ESSENTIAL (PRIMARY) HYPERTENSION 07/22/2019 FEI DO, HIGINIO K Ot R51 HEADACHE 07/22/2019 FEI DO, HIGINIO Saba Ot R73.9 HYPERGLYCEMIA, UNSPECIFIED 07/22/2019 FEI DO, HIGINIO K Ot Z88.0 ALLERGY STATUS TO PENICILLIN 07/22/2019 FEI DO, HIGINIO K Ot Z88.1 ALLERGY STATUS TO OTHER ANTIBIOTIC AGENT 07/22/2019 FEI DO, HIGINIO K Ot Z88.5 ALLERGY STATUS TO NARCOTIC AGENT STATUS 07/22/2019 FEI DO, HIGINIO K Ot Z88.8 ALLERGY STATUS TO OTH DRUG/MEDS/BIOL [...] culture - 04/11/19 12:55 Bacterial urine culture [id number] NRG COLONY COUNT >100,000/ML NRG FTX;REPORTABLE SUSCEPTIBILITY REPORTED 04/14 10:50 NRG FREE TEXT ENTRY 2 PRELIM RAPID ID TEST AT [facility] 04/12 9:40 NRG FREE TEXT [...] and clavulanate potassium susc MARII = NRG CULTURE, URINE - 07/14/19 14:49 CULTURE, URINE, ROUTINE SEE NOTE NRG Complete urinalysis with reflex to cultu re - 07/15/19 23:00 Urine color determination YELLOW NRG Urine clarity [...] NEGATIVE Urine nitrite detection by test strip NEGATIVE NEGATIVE Urine total bilirubin detection by test strip NEGA TIVE NEGATIVE Urine urobilinogen measurement by automated test strip (mass/volume) 0.2 mg/dL < = 1.0 Urine leukocyte esterase detection by dipstick NEG ATIVE NEGATIVE Automated urine sediment erythrocyte cou nt by microscopy (number/high power field) [HPF] NRG Automated urine sediment leukocyte count by microscopy (number/high power field) [HPF] NRG Bacteria detection in urine sediment by light microsco py TRACE NRG Squamous epithelial cells detection in u rine sediment by light microscopy 25-50 NRG Crystals detection in urine sediment by light microsco py PRESENT NRG Casts detection in urine sediment by light microscopy NONE NRG Mucus detection in urine sediment by light microscopy MODERATE NRG Complete urinalysis with reflex to culture NO NRG Calcium oxalate crystals detection in ur ine sediment by light microscopy LARGE NRG Urine drug screening test - 07/15/19 23: 00 Urine phencyclidine detection by screening method NEGATIVE NEGATIVE Urine benzodiazepines detection by screening method NEGATIVE NEGATIVE Urine cocaine detection NEGATIVE NEGATI VE Urine amphetamines detection by screening method N EGATIVE NEGATIVE Urine methamphetamine detection by screening method NEGATIVE NEGATIVE Urine cannabinoids detection by screening method N EGATIVE NEGATIVE Urine opiates detection by screening method NEGATI VE NEGATIVE Urine barbiturates detection NEGATIVE N EGATIVE Screening urine tricyclic antidepressants detection NEGATIVE NEGATIVE Urine methadone detection by screening method NEGA TIVE NEGATIVE Urine oxycodone detection NEGATIVE NEGA TIVE Urine propoxyphene detection NEGATIVE N EGATIVE Urine beta human chorionic gonadotropin (hCG) measurement - 07/15/19 23:00 Urine beta human chorionic gonadotropin (hCG) measurem ent NEGATIVE NEGATIVE Complete blood count (CBC) with automate d white blood cell (WBC) differential - 07/15/19 23:10 Blood leukocytes automated count (number/volume) 11.0 10*3/uL 4.3-11.0 Blood erythrocytes automated count (number/volume) 4.63 10*6/uL 4.35-5.85 Venous blood hemoglobin measurement (mass/volume) 11.7 g/dL 11.5-16.0 Blood hematocrit (volume fraction) 37 % 35-52 Automated erythrocyte mean corpuscular volume 80 [ foz_us] 80-99 Automated erythrocyte mean corpuscular h emoglobin (mass per erythrocyte) 25 pg 25-34 Automated erythrocyte mean corpuscular h emoglobin concentration measurement (mass/volume) 32 g/dL 32-36 Automated erythrocyte distribution width ratio 14. 8 % 10.0- 14.5 Automated blood platelet count (count/volume) 259 10*3/uL 130-400 Automated blood platelet mean volume measurement 10.5 [foz_us] 7.4-10.4 Automated blood neutrophils/100 leukocytes 55 % 42-75 Automated blood lymphocytes/100 leukocytes 37 % 12-44 Blood monocytes/100 leukocytes 5 % 0-12 Automated blood eosinophils/100 leukocytes 2 % 0-10 Automated blood basophils/100 leukocytes 0 % 0-10 Blood neutrophils automated count (number/volume) 6.1 10*3 1.8-7.8 Blood lymphocytes automated count (number/volume) 4.1 10*3 1.0-4.0 Blood monocytes automated count (number/volume) 0. 6 10*3 0.0-1.0 Automated eosinophil count 0.3 10*3/uL 0 .0-0.3 Automated blood basophil count (count/volume) 0.0 10*3/uL 0.0-0.1 Comprehensive metabolic panel - 07/15/19 23:10 Serum or plasma sodium measurement (moles/volume) 140 mmol/L 135-145 Serum or plasma potassium measurement (moles/volume) 3.7 mmol/L 3.6-5.0 Serum or plasma chloride measurement (moles/volume) 107 mmol/L 98-107 Carbon dioxide 21 mmol/L 21-32 Serum or plasma anion gap determination (moles/volume) 12 mmol/L 5-14 Serum or plasma urea nitrogen measurement (mass/volume ) 7 mg/dL 7-18 Serum or plasma creatinine measurement (mass/volume) 0.77 mg/dL 0.60-1.30 Serum or plasma urea nitrogen/creatinine mass ratio 9 NRG Serum or plasma creatinine measurement w ith calculation of estimated glomerular filtration rate > NRG Serum or plasma glucose measurement (mass/volume) 166 mg/dL 70-105 Serum or plasma calcium measurement (mass/volume) 8.9 mg/dL 8.5-10.1 Serum or plasma total bilirubin measurement (mass/volu me) 0.3 mg/dL 0.1-1.0 Serum or plasma alkaline phosphatase navya surement (enzymatic activity/volume) 103 U/L 40-136 Serum or plasma aspartate aminotransfera se measurement (enzymatic activity/volume) 37 U/L 5-34 Serum or plasma alanine aminotransferase measurement (enzymatic activity/volume) 63 U/L 0-55 Serum or plasma protein measurement (mass/volume) 7.8 g/dL 6.4-8.2 Serum or plasma albumin measurement (mass/volume) 4.2 g/dL 3.2-4.5 CALCIUM CORRECTED 8.7 mg/dL 8.5-10.1 Magnesium - 07/15/19 23:10 Magnesium 1.9 mg/dL 1.6-2.4 Serum or plasma troponin i.cardiac measu rement (mass/volume) - 07/15/19 23:10 Serum or plasma troponin i.cardiac measurement (mass/v olume) < ng/mL <0.028 PT panel in platelet poor plasma by coag ulation assay - 07/15/19 23:10 Prothrombin time (PT) in platelet poor plasma by coagu lation assay 13.2 s 12.2-14.7 INR in platelet poor plasma or blood by coagulation as say 1.0 0.8-1.4 Activated partial thromboplastin time (a PTT) in platelet poor plasma bycoagulation assay - 07/15/19 23:10 Activated partial thromboplastin time (a PTT) in platelet poor plasma bycoagulation assay 31 s 24-35 Serum or plasma thyrotropin measurement by detection limit <=0.05 miu/l (units/volume) - 07/15/19 23:10 Serum or plasma thyrotropin measurement by detection limit <=0.05 miu/l (units/volume) 2.85 u[iU]/mL 0.35-4.94 CMP - 07/29/19 09:49 GLUCOSE 141 mg/dL 65-99 UREA NITROGEN (BUN) 8 mg/dL 7-25 CREATININE 0.69 mg/dL 0.50-1.10 eGFR NON-AFR. BULGARIAN 118 mL/min/1.73m2 > OR = 60 eGFR 136 mL/min/1.73m2 > OR = 60 BUN/CREATININE RATIO NOT APPLICABLE (calc) 6-22 SODIUM 140 mmol/L 135-146 POTASSIUM 3.7 mmol/L 3.5-5.3 CHLORIDE 107 mmol/L 98-110 CARBON DIOXIDE 23 mmol/L 20-32 CALCIUM 9.0 mg/dL 8.6-10.2 PROTEIN, TOTAL 7.3 g/dL 6.1-8.1 ALBUMIN 4.1 g/dL 3.6-5.1 GLOBULIN 3.2 g/dL (calc) 1.9-3.7 ALBUMIN/GLOBULIN RATIO 1.3 (calc) 1.0-2. 5 BILIRUBIN, TOTAL 0.4 mg/dL 0.2-1.2 ALKALINE PHOSPHATASE 93 U/L 31-125 AST 57 U/L 10-30 ALT 71 U/L 6-29 HCG, QUAL REFLEX TO QUANT - 07/29/19 09: 49 HCG, TOTAL, QL NEGATIVE See Note: TEST AUTHORIZATION - 07/29/19 09:49 TEST NAME: IRON, TIBC AND FERRITIN PANEL NRG TEST CODE: [id number] NRG CLIENT CONTACT: HIGINIO CHEEMA NRG REPORT ALWAYS MESSAGE SIGNATURE NRG COMMENT NRG Encounters ACCT No. Visit Date/Time Discharge Status Pt. Type Provider Facility Loc./Unit Complaint [id number] 07/16/2019 12:40:00 07/16/2019 23:59: 59 CLS Outpatient [facility] [id number] 07/29/2019 09:00:00 Document Registration [id number] 07/14/2019 12:15:00 Document Registration [id number] 07/15/2019 22:10:00 00:43:00 DIS Outpatient HIGNIIO ENAMORADO DO [facility] ER HEADACHE,DIZZY [id number] 06/07/2019 19:17:00 20:19:00 DIS Emergency YAMILET CLAY [facility] ER L KNEE PAIN [id number] 04/11/2019 12:28:00 14:39:00 DIS Emergency OBEDYAMILET Miller [facility] ER KIDNEY PAIN
--- NOTE | 2019-08-01 20:19 | ED Back Pain ---
General Chief Complaint: Back Problems Stated Complaint: LOW BACK PAIN Source of Information: Patient Exam Limitations: No Limitations History of Present Illness Date Seen by Provider: August 01, 2019 Time Seen by Provider: 20:17 Initial Comments To ER with some pain to the right buttocks where her bladder stimulator is intact. The area overlying this is more tender to palpation than usual. No injury. Pain has been present for about 2 or 3 days. She has this to help with incontinence and frequent urinary tract infections, does also have some urinary frequency more than usual. Location: Other (right buttock. ) Timing/Duration: 2-3 Days Severity: Moderate Associated Symptoms: denies symptoms Allergies and Home Medications Allergies Coded Allergies: amoxicillin (Verified Allergy, Unknown, 04/11/19) oxycodone (Verified Allergy, Unknown, HIVES, 04/11/19) bismuth subsalicylate (Verified Adverse Reaction, Unknown, LIPS TURNED BLUE AND VOMITING, 04/11/19) ciprofloxacin (Verified Adverse Reaction, Unknown, VOMITING, 04/11/19) Home Medications No Active Prescriptions or Reported Meds Patient Home Medication List Home Medication List Reviewed: Yes Review of Systems Constitutional: see HPI EENTM: see HPI Respiratory: no symptoms reported Genitourinary: no symptoms reported Musculoskeletal: see HPI Skin: no symptoms reported Psychiatric/Neurological: No Symptoms Reported Past Chmmwys-Taxpjr-Paripn Hx Patient Social History 2nd Hand Smoke Exposure: No Recent Foreign Travel: No Contact w/Someone Who Travel: No Recent Hopitalizations: No Immunizations Up To Date Tetanus Booster (TDap): Unknown Seasonal Allergies Seasonal Allergies: No Past Medical History Surgeries: Yes (D&C; BLADDER STIMULATOR; X 1) Bladder Surgery, Section Respiratory: No Cardiac: Yes ( INDUCED HTN 2017--WAS ON MEDICATIONS) Hypertension Neurological: No Reproductive Disorders: No Genitourinary: Yes (BLADDER STIMULATOR IN PLACE) Kidney Stones, UTI-Chronic Gastrointestinal: No Musculoskeletal: Yes (CHRONIC KNEE PAIN ) Endocrine: Yes (GESTATIONAL DIABETES 2016--WAS ON INSULIN) HEENT: No Cancer: No Psychosocial: Yes ADD/ADHD Integumentary: No Blood Disorders: No Physical Exam Vital Signs Vital Signs - First Documented 08/01/19 20:07 Temp 37.1 Pulse 86 Resp 18 B/P (MAP) 138/93 (108) O2 Delivery Room Air Capillary Refill : Height, Weight, BMI Height: '" Weight: lbs. oz. kg; 37.00 BMI Method: General Appearance: No Apparent Distress, WD/WN HEENT: PERRL/EOMI Neck: Full Range of Motion, Normal Inspection Respiratory: No Accessory Muscle Use, No Respiratory Distress Gastrointestinal: Normal Bowel Sounds, Non Tender, Soft Extremity: Normal Capillary Refill, Normal Inspection Neurologic/Psychiatric: Alert, Oriented x3 Skin: Normal Color, Warm/Dry Lymphatic: Other (tenderness to palpation right buttock overlying the bladder stimulator with normal appearing skin. ) Progress/Results/Core Measures Results/Orders Lab Results Laboratory Tests Test 08/01/19 20:15 Range/Units Urine Color YELLOW Urine Clarity SL CLOUDY Urine pH 6.0 5-9 Urine Specific [place] 1.020 1.016-1.022 Urine Protein NEGATIVE NEGATIVE Urine Glucose (UA) NEGATIVE NEGATIVE Urine Ketones NEGATIVE NEGATIVE Urine Nitrite NEGATIVE NEGATIVE Urine Bilirubin NEGATIVE NEGATIVE Urine Urobilinogen 0.2 < = 1.0 MG/DL Urine Leukocyte Esterase 1+ H NEGATIVE Urine RBC (Auto) 3+ H NEGATIVE Urine RBC 25-50 H /HPF Urine WBC 5-10 H /HPF Urine Squamous Epithelial Cells 10-25 H /HPF Urine Crystals NONE /LPF Urine Bacteria MODERATE H /HPF Urine Casts NONE /LPF Urine Mucus NEGATIVE /LPF Urine Culture Indicated YES My Orders Orders - NANCY SMILEY APRN Ua Culture If Indicated (08/01/19 20:04) Urine Bedside (08/01/19 20:04) Pelvis (08/01/19 20:16) Urine Culture (08/01/19 20:15) Cefdinir Capsule (Omnicef Capsule) (08/01/19 21:15) Vital Signs/I&O 08/01/19 20:07 Temp 37.1 Pulse 86 Resp 18 B/P (MAP) 138/93 (108) O2 Delivery Room Air Departure Impression Primary Impression: Buttock pain Additional Impressions: bladder stimulator Urinary tract infection Disposition: 01 HOME, SELF-CARE Condition: Stable Departure-Patient Inst. Decision time for Depature: 20:53 Referrals: NO,LOCAL PHYSICIAN (PCP/Family) Primary Care Physician Patient Instructions: NO INSTRUCTIONS GIVEN Add. Discharge Instructions: 1. Return to ER for any concerns 2. Follow-up with your doctor that placed this next week. All discharge instructions reviewed with patient and/or family. Voiced understanding. Scripts Sulfamethoxazole/Trimethoprim (Bactrim Ds Tablet) 1 Each Tablet 1 EACH PO BID, #10 TAB Prov: NANCY SMILEY APRN 08/01/19 NANCY SMILEY APRN August 01, 2019 20:19
[2019-08-01 20:41] LABS: BILIRUBIN,URINE NEGATIVE (NEGATIVE); CLARITY,URINE SL CLOUDY; COLOR,URINE YELLOW; GLUCOSE, URINE (UA) NEGATIVE (NEGATIVE); KETONES,URINE NEGATIVE (NEGATIVE); LEUKOCYTE ESTERASE ,URINE 1+ (NEGATIVE); NITRITE,URINE NEGATIVE (NEGATIVE); PROTEIN,URINE NEGATIVE (NEGATIVE)
[2019-08-01 21:00] LABS: BACTERIA,URINE MODERATE /HPF; RBC,URINE 25-50 /HPF
--- NOTE | 2019-08-01 21:02 | Diagnostic Imaging Report ---
INDICATION: Right lower back pain. EXAMINATION: AP view of the pelvis was obtained. FINDINGS: There is a bladder stimulator lead in place. The lead appears to be in a similar position compared to previous exam from 04/11/2019. There is no fracture or dislocation. There are no pathologic masses seen. IMPRESSION: No acute abnormality in the pelvis. Dictated by: Dictated on workstation # [id number]
[2019-08-01] MEDS ORDERED: SULF1TAB35 PO (21:04)
[2019-08-01] MEDS ORDERED: CEFDINIR 300 MG (OMNICEF) CAP PO ONE (21:15)
[2019-08-01 21:16] VITALS: BP 135/91
== END 2019-08-01 21:16 | disposition home or self-care (01) ==
LOC: EDUNIT# 20:01 → ER 20:02
DX: M54.5 Low back pain (principal); N39.0 Urinary tract infection, site not specified; Z88.0 Allergy status to penicillin; Z88.5 Allergy status to narcotic agent; Z96.82 Presence of neurostimulator; Z88.1 Allergy status to other antibiotic agents
CPT/HCPCS: 72170; 81000; 84703; 87088

== ENCOUNTER 2019-08-10 16:56 | Emergency (ER) | payer MEDICAID ==
[~2019-08-10] VITALS: Ht 149.8 cm; Wt 84.1 kg
--- NOTE | 2019-08-10 17:11 | ED Abdominal Pain ---
General Stated Complaint: R SIDE PAIN Source of Information: Patient Exam Limitations: No Limitations History of Present Illness Date Seen by Provider: Aug 10, 2019 Time Seen by Provider: 17:09 Initial Comments To ER with right flank pain ongoing for several months, states that she had an ultrasound at some point which showed a mass. She states that she is scheduled to have a CAT scan with and without contrast at some point but that has not yet been done. She presents today for worsening right flank pain, hyperglycemia. She states that she's had elevated blood sugars in the 290 range for the past week or so, she is on oral antidiabetics, not on any insulin. She denies any nausea or vomiting, denies fevers or chills. Denies dysuria or diarrhea. Timing/Duration: Getting Worse Severity/Quality: Moderate Location: Flank Radiation: No Radiation Activities at Onset: None Associated Symptoms: Nausea/Vomiting Allergies and Home Medications Allergies Coded Allergies: amoxicillin (Verified Allergy, Unknown, 04/11/19) oxycodone (Verified Allergy, Unknown, HIVES, 04/11/19) bismuth subsalicylate (Verified Adverse Reaction, Unknown, LIPS TURNED BLUE AND VOMITING, 04/11/19) ciprofloxacin (Verified Adverse Reaction, Unknown, VOMITING, 04/11/19) Home Medications Sulfamethoxazole/Trimethoprim 1 Each Tablet, 1 EACH PO BID Prescribed by: NANCY SMILEY on 08/01/192103 Patient Home Medication List Home Medication List Reviewed: Yes Review of Systems Review of Systems Constitutional: see HPI EENTM: No Symptoms Reported Respiratory: No Symptoms Reported Cardiovascular: No Symptoms Reported Gastrointestinal: See HPI; Denies Nausea, Denies Vomiting Genitourinary: See HPI, Flank Pain Musculoskeletal: no symptoms reported Skin: no symptoms reported Psychiatric/Neurological: No Symptoms Reported Endocrine: No Symptoms Reported Hematologic/Lymphatic: No Symptoms Reported Past Nohjcww-Uubehc-Njjkai Hx Patient Social History 2nd Hand Smoke Exposure: No Recent Foreign Travel: No Contact w/Someone Who Travel: No Recent Hopitalizations: No Immunizations Up To Date Tetanus Booster (TDap): Unknown Seasonal Allergies Seasonal Allergies: No Past Medical History Surgeries: Yes (D&C; BLADDER STIMULATOR; X 1) Bladder Surgery, Section Respiratory: No Cardiac: Yes ( INDUCED HTN 2017) Hypertension Neurological: No Reproductive Disorders: No Genitourinary: Yes (BLADDER STIMULATOR IN PLACE) Kidney Stones, UTI-Chronic Gastrointestinal: No Musculoskeletal: Yes (CHRONIC KNEE PAIN ) Endocrine: Yes (GESTATIONAL DIABETES 2017--WAS ON INSULIN) HEENT: No Cancer: No Psychosocial: Yes ADD/ADHD Integumentary: No Blood Disorders: No Physical Exam Vital Signs Vital Signs - First Documented 08/10/19 16:58 Temp 36.9 Pulse 91 Resp 18 B/P (MAP) 153/108 (123) Pulse Ox 98 O2 Delivery Room Air Capillary Refill : Height/Weight/BMI Height: '" Weight: lbs. oz. kg; 37.00 BMI Method: General Appearance: WD/WN, no apparent distress, obese HEENT: PERRL/EOMI, normal ENT inspection Respiratory: normal breath sounds, no respiratory distress, no accessory muscle use Gastrointestinal: normal bowel sounds, non tender, soft Extremities: normal range of motion, non-tender Neurologic/Psychiatric: alert, normal mood/affect, oriented x 3 Skin: normal color, warm/dry Progress/Results/Core Measures Results/Orders Lab Results Laboratory Tests Test 08/10/19 17:00 08/10/19 17:05 Range/Units Urine Color YELLOW Urine Clarity CLEAR Urine pH 5.5 5-9 Urine Specific [place] >=1.030 1.016-1.022 Urine Protein NEGATIVE NEGATIVE Urine Glucose (UA) NEGATIVE NEGATIVE Urine Ketones NEGATIVE NEGATIVE Urine Nitrite NEGATIVE NEGATIVE Urine Bilirubin NEGATIVE NEGATIVE Urine Urobilinogen 0.2 < = 1.0 MG/DL Urine Leukocyte Esterase TRACE H NEGATIVE Urine RBC (Auto) NEGATIVE NEGATIVE Urine RBC 0-2 /HPF Urine WBC 0-2 /HPF Urine Squamous Epithelial Cells 5-10 /HPF Urine Crystals PRESENT H /LPF Urine Amorphous Sediment MOD CAROLE URATES H /LPF Urine Bacteria TRACE /HPF Urine Casts NONE /LPF Urine Mucus MODERATE H /LPF Urine Culture Indicated NO White Blood Count 9.4 4.3-11.0 10^3/uL Red Blood Count 4.62 4.35-5.85 10^6/uL Hemoglobin 12.0 11.5-16.0 G/DL Hematocrit 37 35-52 % Mean Corpuscular Volume 79 L 80-99 FL Mean Corpuscular Hemoglobin 26 25-34 PG Mean Corpuscular Hemoglobin Concent 33 32-36 G/DL Red Cell Distribution Width 14.4 10.0-14.5 % Platelet Count 274 130-400 10^3/uL Mean Platelet Volume 10.3 7.4-10.4 FL Neutrophils (%) (Auto) 53 42-75 % Lymphocytes (%) (Auto) 39 12-44 % Monocytes (%) (Auto) 5 0-12 % Eosinophils (%) (Auto) 2 0-10 % Basophils (%) (Auto) 0 0-10 % Neutrophils # (Auto) 5.0 1.8-7.8 X 10^3 Lymphocytes # (Auto) 3.7 1.0-4.0 X 10^3 Monocytes # (Auto) 0.5 0.0-1.0 X 10^3 Eosinophils # (Auto) 0.2 0.0-0.3 10^3/uL Basophils # (Auto) 0.0 0.0-0.1 10^3/uL Sodium Level 142 135-145 MMOL/L Potassium Level 3.5 L 3.6-5.0 MMOL/L Chloride Level 109 H 98-107 MMOL/L Carbon Dioxide Level 22 21-32 MMOL/L Anion Gap 11 5-14 MMOL/L Blood Urea Nitrogen 10 7-18 MG/DL Creatinine 0.80 0.60-1.30 MG/DL Estimat Glomerular Filtration Rate > 60 BUN/Creatinine Ratio 13 Glucose Level 121 H 70-105 MG/DL Calcium Level 9.6 8.5-10.1 MG/DL Corrected Calcium 9.2 8.5-10.1 MG/DL Total Bilirubin 0.4 0.1-1.0 MG/DL Aspartate Amino Transf (AST/SGOT) 59 H 5-34 U/L Alanine Aminotransferase (ALT/SGPT) 75 H 0-55 U/L Alkaline Phosphatase 98 40-136 U/L Total Protein 8.2 6.4-8.2 GM/DL Albumin 4.5 3.2-4.5 GM/DL Serum Test, Qualitative NEGATIVE NEGATIVE My Orders Orders - NANCY SMILEY APRN Cbc With Automated Diff (08/10/19 17:06) Comprehensive Metabolic Panel (08/10/19 17:06) Hcg,Qualitative Serum (08/10/19 17:06) Ed Iv/Invasive Line Start (08/10/19 17:06) Ua Culture If Indicated (08/10/19 17:06) Ct Abdomen/Pelvis W Wo (08/10/19 17:06) Iohexol Injection (Omnipaque 350 Mg/Ml 1 (08/10/19 18:15) Received Contrast (Hold Metformin- Contr (08/10/19 18:15) Ns (Ivpb) (Sodium Chloride 0.9% Ivpb Bag (08/10/19 18:15) Medications Given in ED Current Medications Medications Dose Ordered Sig/Yang Route Start Time Stop Time Status Last Admin Dose Admin Iohexol 85 ml ONCE ONCE IV 08/10/19 18:15 08/10/19 18:19 DC 08/10/19 18:07 85 ML Sodium Chloride 100 ml ONCE ONCE IV 08/10/19 18:15 08/10/19 18:19 DC 08/10/19 18:07 100 ML Vital Signs/I&O 08/10/19 16:58 Temp 36.9 Pulse 91 Resp 18 B/P (MAP) 153/108 (123) Pulse Ox 98 O2 Delivery Room Air Diagnostic Imaging Comments NAME: DAVID CORONA [facility] REC#: [id number] PT STATUS: REG ER : 11/10/1994 PHYSICIAN: NANCY SMILEY APRN ADMIT DATE: 08/10/19/ER Draft Date of Exam:08/10/19 US GALLBLADDER [id number] PROCEDURE: US Gallbladder. TECHNIQUE: Multiple real-time grayscale images were obtained over the right upper quadrant in various projections. INDICATION: Upper abdominal pain. FINDINGS: No focal abnormality of the liver is seen. No shadowing gallstones are seen. The gallbladder wall is thickened measuring 4 mm with pericholecystic fluid seen. Common bile duct measures 4 mm. There may be mild prominence of the pancreas and pancreatic edema cannot be excluded but no peripancreatic mass or edema is seen. Pancreatic duct is not dilated. The aorta and right kidney are normal. There is no ascites. IMPRESSION: Gallbladder wall thickening which may be secondary to cholecystitis. Early or mild pancreatitis cannot be excluded. The accompanying CT showed no CT evidence of pancreatitis, however. Dictated on workstation # [id number] Dict: 08/10/19 1721 Trans: 08/10/19 1728 [facility] [id number] Interpreted by: ALINE WELLS MD Electronically signed by: Departure Impression Primary Impression: Right flank pain Disposition: 01 HOME, SELF-CARE Condition: Stable Departure-Patient Inst. Decision time for Depature: 18:08 Referrals: [facility] (PCP) Primary Care Physician XIANG VERGARA APRN (Family) Primary Care Physician Patient Instructions: No Instuctions Given Add. Discharge Instructions: 1. Follow-up with Edwin Vergara in the next few weeks for recheck. Return to ER for any concerns Scripts Methocarbamol (Robaxin-750) 750 Mg Tablet 750 MG PO Q4H PRN for PAIN-MODERATE (5-7), #20 TAB Prov: NANCY SMILEY APRN 08/10/19 Copy Copies To 1: DAVIDSON ANTOINE PETER J APRN Aug 10, 2019 17:11
[2019-08-10 17:18] LABS: BASOPHILS % (AUTO) 0 % (0-10); EOSINOPHILS # (AUTO) 0.2 10^3/uL (0.0-0.3); EOSINOPHILS % (AUTO) 2 % (0-10); HEMATOCRIT 37 % (35-52); LYMPHOCYTES # (AUTO) 3.7 X 10^3 (1.0-4.0); LYMPHOCYTES % (AUTO) 39 % (12-44); MEAN CORPUSCULAR HEMOGLOBIN 26 PG (25-34); MEAN CORPUSCULAR HGB CONC 33 G/DL (32-36); MEAN CORPUSCULAR VOLUME 79 FL (80-99); MEAN PLATELET VOLUME 10.3 FL (7.4-10.4); MONOCYTES # (AUTO) 0.5 X 10^3 (0.0-1.0); MONOCYTES % (AUTO) 5 % (0-12); NEUTROPHILS % (AUTO) 53 % (42-75); PLATELET COUNT 274 10^3/uL (130-400); RED CELL DISTRIBUTION WIDTH 14.4 % (10.0-14.5); WHITE BLOOD COUNT 9.4 10^3/uL (4.3-11.0)
[2019-08-10 17:19] LABS: BILIRUBIN,URINE NEGATIVE (NEGATIVE); CLARITY,URINE CLEAR; COLOR,URINE YELLOW; GLUCOSE, URINE (UA) NEGATIVE (NEGATIVE); KETONES,URINE NEGATIVE (NEGATIVE); LEUKOCYTE ESTERASE ,URINE TRACE (NEGATIVE); NITRITE,URINE NEGATIVE (NEGATIVE); PH,URINE 5.5 (5-9); PROTEIN,URINE NEGATIVE (NEGATIVE)
[2019-08-10 17:32] LABS: AMORPHOUS SEDIMENT,UR MOD AMOR URATES /LPF; BACTERIA,URINE TRACE /HPF; RBC,URINE 0-2 /HPF; WBC,URINE 0-2 /HPF
[2019-08-10 17:40] LABS: ALBUMIN 4.5 GM/DL (3.2-4.5); CHLORIDE 109 MMOL/L (98-107); POTASSIUM 3.5 MMOL/L (3.6-5.0); SODIUM 142 MMOL/L (135-145)
[2019-08-10 17:41] LABS: CALCIUM 9.6 MG/DL (8.5-10.1)
[2019-08-10 17:42] LABS: GLUCOSE 121 MG/DL (70-105); TOTAL PROTEIN 8.2 GM/DL (6.4-8.2)
[2019-08-10 17:43] LABS: CARBON DIOXIDE 22 MMOL/L (21-32)
[2019-08-10 17:44] LABS: BILIRUBIN,TOTAL 0.4 MG/DL (0.1-1.0)
[2019-08-10 17:46] LABS: ALKALINE PHOSPHATASE 98 U/L (40-136); GFR ESTIMATED > 60
[2019-08-10 17:47] LABS: BUN/CREATININE RATIO 13
[2019-08-10 17:49] LABS: ALANINE AMINOTRANSFERASE 75 U/L (0-55)
[2019-08-10] MEDS ORDERED: NS 100 ML (IVPB) BAG IV ONE (18:15)
[2019-08-10] MEDS ORDERED: IOHEXOL 350 MG/ML 100 ML (OMNIPAQUE 350) VIAL IV ONE (18:15)
[2019-08-10] MEDS ORDERED: HOLD METFORMIN - RECEIVED CONTRAST 20 ML VIAL IV SCH (18:15)
--- NOTE | 2019-08-10 18:31 | Diagnostic Imaging Report ---
PROCEDURE: CT abdomen and pelvis with and without contrast. TECHNIQUE: Precontrast acquisitions were acquired through the abdomen and pelvis. Multiple contiguous axial images were obtained through the abdomen and pelvis after the administration of intravenous contrast. Auto Exposure Controls were utilized during the CT exam to meet ALARA standards for radiation dose reduction. INDICATION: Right flank pain. Abnormal sonogram. Right renal mass. COMPARISON: No prior study is available for comparison. FINDINGS: There is hepatic steatosis. The gallbladder and bile ducts are normal. The spleen, pancreas, and adrenals are normal. The kidneys are normal in size, shape, and position. There is no mass, calculus, or hydronephrosis seen on either side. The ureters and bladder are normal. There is no adnexal mass. There are follicles seen on the left ovary. The appendix is normal. No bowel abnormality is seen. No mesenteric mass or suspicious lymphadenopathy is seen. There is no ascites. There is no bony abnormality. IMPRESSION: No acute abnormality is seen. No renal mass is evident. Dictated by: Dictated on workstation # [id number]
[2019-08-10] MEDS ORDERED: METH-313 PO (18:46)
[2019-08-10 18:47] VITALS: BP 142/93
--- OUTSIDE RECORDS SUMMARY | 2019-08-10 23:35 | XMS REPORT | Continuity of Care Document ---
Author Organization Unknown Address Unknown Phone Unavailable Allergies Active Description Code Type Severity Reaction Onset Reported/Identified Relationship to Patient Clinical Status Yes amoxicillin [id number] Drug Aller gy Unknown N/A 04/11/2019 Yes bismuth subsalicylate [id number] Drug Allergy Unknown LIPS TURNED ADAMA 10/2019 Yes ciprofloxacin [id number] Suman g Allergy Unknown VOMITING 04/11/2019 Yes oxycodone [id number] Drug Allergy Unknown HIVES 04/11/2019 Medications There is no data. Problems Date Dx Coded Attending Type Code Diagnosis Diagnosed By 04/11/2019 OBED YAMILET FABRICATION ENGINEER Ot N39.0 URINARY TRACT INFECTION, SITE NOT SPECIF 04/11/2019 OBED, YAMILET FABRICATION ENGINEER Ot R10.31 RIGHT LOWER QUADRANT PAIN 04/11/2019 OBED, YAMILET FABRICATION ENGINEER Ot Z87.442 PERSONAL HISTORY OF URINARY CALCULI 04/11/2019 OBED, YAMILET FABRICATION ENGINEER Ot Z88.0 ALLERGY STATUS TO PENICILLIN 04/11/2019 OBED, YAMILET FABRICATION ENGINEER Ot Z88.1 ALLERGY STATUS TO OTHER ANTIBIOTIC AGENT 04/11/2019 OBED, YAMILET FABRICATION ENGINEER Ot Z88.5 ALLERGY STATUS TO NARCOTIC AGENT STATUS 04/11/2019 OBED, YAMILET FABRICATION ENGINEER Ot Z88.8 ALLERGY STATUS TO OT DRUG/MEDS/BIOL SUB 04/15/2019 OBED, YAMILET FABRICATION ENGINEER Ot N39.0 URINARY TRACT INFECTION, SITE NOT SPECIF 04/15/2019 OBED, YAMILET FABRICATION ENGINEER Ot R10.31 RIGHT LOWER QUADRANT PAIN 04/15/2019 OBED, YAMILET FABRICATION ENGINEER Ot Z87.442 PERSONAL HISTORY OF URINARY CALCULI 04/15/2019 OBED, YAMILET FABRICATION ENGINEER Ot Z88.0 ALLERGY STATUS TO PENICILLIN 04/15/2019 OBED, YAMILET FABRICATION ENGINEER Ot Z88.1 ALLERGY STATUS TO OTHER ANTIBIOTIC AGENT 04/15/2019 OBED, YAMILET FABRICATION ENGINEER Ot Z88.5 ALLERGY STATUS TO NARCOTIC AGENT STATUS 04/15/2019 OBED, YAMILET FABRICATION ENGINEER Ot Z88.8 ALLERGY STATUS TO OTH DRUG/MEDS/BIOL SUB 06/07/2019 OBED, YAMILET FABRICATION ENGINEER Ot M25.562 PAIN IN LEFT KNEE 06/07/2019 OBED, YAMILET FABRICATION ENGINEER Ot Z88.0 ALLERGY STATUS TO PENICILLIN 06/07/2019 OBED, YAMILET FABRICATION ENGINEER Ot Z88.1 ALLERGY STATUS TO OTHER ANTIBIOTIC AGENT 06/07/2019 OBED, YAMILET FABRICATION ENGINEER Ot Z88.5 ALLERGY STATUS TO NARCOTIC AGENT STATUS 06/07/2019 OBED, YAMILET FABRICATION ENGINEER Ot Z88.8 ALLERGY STATUS TO OTH DRUG/MEDS/BIOL SUB 06/10/2019 OBED, YAMILET FABRICATION ENGINEER Ot M25.562 PAIN IN LEFT KNEE 06/10/2019 OBED, YAMILET FABRICATION ENGINEER Ot Z88.0 ALLERGY STATUS TO PENICILLIN 06/10/2019 OBED, YAMILET FABRICATION ENGINEER Ot Z88.1 ALLERGY STATUS TO OTHER ANTIBIOTIC AGENT 06/10/2019 OBED, YAMILET FABRICATION ENGINEER Ot Z88.5 ALLERGY STATUS TO NARCOTIC AGENT STATUS 06/10/2019 OBED, YAMILET FABRICATION ENGINEER Ot Z88.8 ALLERGY STATUS TO OTH DRUG/MEDS/BIOL SUB 06/10/2019 OBED, YAMILET FABRICATION ENGINEER Ot M25.562 PAIN IN LEFT KNEE 06/10/2019 OBED, YAMILET FABRICATION ENGINEER Ot Z88.0 ALLERGY STATUS TO PENICILLIN 06/10/2019 OBED, YAMILET FABRICATION ENGINEER Ot Z88.1 ALLERGY STATUS TO OTHER ANTIBIOTIC AGENT 06/10/2019 OBED, YAMILET FABRICATION ENGINEER Ot Z88.5 ALLERGY STATUS TO NARCOTIC AGENT STATUS 06/10/2019 OBED, YAMILET FABRICATION ENGINEER Ot Z88.8 ALLERGY STATUS TO OTH DRUG/MEDS/BIOL [...] Ot R51 HEADACHE 07/22/2019 FEI DO, HIGINIO K Ot R73.9 HYPERGLYCEMIA, UNSPECIFIED 07/22/2019 FEI DO, HIGINIO K Ot Z88.0 ALLERGY STATUS TO PENICILLIN 07/22/2019 FEI DO, HIGINIO K Ot Z88.1 ALLERGY STATUS TO OTHER ANTIBIOTIC AGENT 07/22/2019 FEI DO, HIGINIO K Ot Z88.5 ALLERGY STATUS TO NARCOTIC AGENT STATUS 07/22/2019 FEI DO, HIGINIO K Ot Z88.8 ALLERGY STATUS TO OTH DRUG/MEDS/BIOL SUB 08/03/2019 NANCY SMILEY APRN Ot M54 .5 LOW BACK PAIN 08/03/2019 NANCY SMILEY APRN Ot N39 .0 URINARY TRACT INFECTION, SITE NOT SPECIF 08/03/2019 NANCY SMILEY APRN Ot Z88 .0 ALLERGY STATUS TO PENICILLIN 08/03/2019 NANCY SMILEY APRN Ot Z88 .1 ALLERGY STATUS TO OTHER ANTIBIOTIC AGENT 08/03/2019 NANCY SMILEY APRN Ot Z88 .5 ALLERGY STATUS TO NARCOTIC AGENT STATUS 08/03/2019 NANCY SMILEY APRN Ot Z96.82 PRESENCE OF NEUROSTIMULATOR Procedures There is no data. Results Test [...] culture - 04/11/19 12:55 Bacterial urine culture [id number] NRG COLONY COUNT >100,000/ML NRG FTX;REPORTABLE SUSCEPTIBILITY REPORTED 04/14 10:50 NRG FREE TEXT ENTRY 2 PRELIM RAPID ID TEST AT [facility] 04/12 9:40 NRG FREE TEXT ENTRY 3 [...] 7-25 CREATININE 0.69 mg/dL 0.50-1.10 eGFR NON-AFR. SURINAMESE 118 mL/min/1.73m2 > OR = 60 eGFR [...] 57 U/L 10-30 ALT 71 U/L 6-29 Complete urinalysis with reflex to cultu re - 08/01/19 20:15 Urine color determination YELLOW NRG Urine clarity determination SL CLOUDY N RG Urine pH measurement by test strip 6.0 5-9 Specific gravity of urine by test strip 1.020 1.016-1.022 Urine protein assay by test strip, semi-quantitative NEGATIVE NEGATIVE Urine glucose detection by automated test strip NE GATIVE NEGATIVE Erythrocytes detection in urine sediment by light micr oscopy 3+ NEGATIVE Urine ketones detection by automated test [...] in urine sediment by light microsco py MODERATE NRG Squamous epithelial cells detection in u rine sediment by light microscopy 10-25 NRG Crystals detection in urine sediment by light microsco py NONE NRG Casts detection in urine sediment by light microscopy NONE NRG Mucus detection in urine sediment by light microscopy NEGATIVE NRG Complete urinalysis with reflex to culture YES NRG Bacterial urine culture - 08/01/19 20:15 Bacterial urine culture 3 OR MORE NRG COLONY COUNT >100,000/ML NRG SUSCEPTIBILITY GRAM POSITIVE ISOLATES; SUGGESTING NRG MRSA SCREEN PROBABLE COLLECTION CONTAMINATION WITH NRG RAPID ID SKIN ANDREW. NO SUSCEPTIBILITY PERFORMED. NRG Complete urinalysis with reflex to cultu re - 08/10/19 17:00 Urine color determination YELLOW NRG Urine clarity [...] 1.0 Urine leukocyte esterase detection by dipstick TRA CE NEGATIVE Automated urine sediment erythrocyte cou nt by microscopy (number/high power field) [HPF] NRG Automated urine sediment leukocyte count by microscopy (number/high power field) [HPF] NRG Bacteria detection in urine sediment by light microsco py TRACE NRG Squamous epithelial cells detection in u rine sediment by light microscopy 5-10 NRG Crystals detection in urine sediment by light microsco py PRESENT NRG Casts detection in urine sediment by light microscopy NONE NRG Mucus detection in urine sediment by light microscopy MODERATE NRG Complete urinalysis with reflex to culture NO NRG Amorphous sediment detection in urine sediment by ligh t microscopy MOD CAROLE URATES NRG Complete blood count (CBC) with automate d white blood cell (WBC) differential - 08/10/19 17:05 Blood leukocytes automated count (number/volume) 9.4 10*3/uL 4.3-11.0 Blood erythrocytes automated count (number/volume) 4.62 10*6/uL 4.35-5.85 Venous blood hemoglobin measurement (mass/volume) 12.0 g/dL 11.5-16.0 Blood hematocrit (volume fraction) 37 % 35-52 Automated erythrocyte mean corpuscular volume 79 [ foz_us] 80-99 Automated erythrocyte mean corpuscular h emoglobin (mass per erythrocyte) 26 pg 25-34 Automated erythrocyte mean corpuscular h emoglobin concentration measurement (mass/volume) 33 g/dL 32-36 Automated erythrocyte distribution width ratio 14. 4 % 10.0- 14.5 Automated blood platelet count (count/volume) 274 10*3/uL 130-400 Automated blood platelet mean volume measurement 10.3 [foz_us] 7.4-10.4 Automated blood neutrophils/100 leukocytes 53 % 42-75 Automated blood lymphocytes/100 leukocytes 39 % 12-44 Blood monocytes/100 leukocytes 5 % 0-12 Automated blood eosinophils/100 leukocytes 2 % 0-10 Automated blood basophils/100 leukocytes 0 % 0-10 Blood neutrophils automated count (number/volume) 5.0 10*3 1.8-7.8 Blood lymphocytes automated count (number/volume) 3.7 10*3 1.0-4.0 Blood monocytes automated count (number/volume) 0. 5 10*3 0.0-1.0 Automated eosinophil count 0.2 10*3/uL 0 .0-0.3 Automated blood basophil count (count/volume) 0.0 10*3/uL 0.0-0.1 Serum or plasma choriogonadotropin (preg delilah test) detection - 08/10/19 17:05 Serum or plasma choriogonadotropin ( test) de tection NEGATIVE NEGATIVE Comprehensive metabolic panel - 08/10/19 17:05 Serum or plasma sodium measurement (moles/volume) 142 mmol/L 135-145 Serum or plasma potassium measurement (moles/volume) 3.5 mmol/L 3.6-5.0 Serum or plasma chloride measurement (moles/volume) 109 mmol/L 98-107 Carbon dioxide 22 mmol/L 21-32 Serum or plasma anion gap determination (moles/volume) 11 mmol/L 5-14 Serum or plasma urea nitrogen measurement (mass/volume ) 10 mg/dL 7-18 Serum or plasma creatinine measurement (mass/volume) 0.80 mg/dL 0.60-1.30 Serum or plasma urea nitrogen/creatinine mass ratio 13 NRG Serum or plasma creatinine measurement w ith calculation of estimated glomerular filtration rate > NRG Serum or plasma glucose measurement (mass/volume) 121 mg/dL 70-105 Serum or plasma calcium measurement (mass/volume) 9.6 mg/dL 8.5-10.1 Serum or plasma total bilirubin measurement (mass/volu me) 0.4 mg/dL 0.1-1.0 Serum or plasma alkaline phosphatase navya surement (enzymatic activity/volume) 98 U/L 40-136 Serum or plasma aspartate aminotransfera se measurement (enzymatic activity/volume) 59 U/L 5-34 Serum or plasma alanine aminotransferase measurement (enzymatic activity/volume) 75 U/L 0-55 Serum or plasma protein measurement (mass/volume) 8.2 g/dL 6.4-8.2 Serum or plasma albumin measurement (mass/volume) 4.5 g/dL 3.2-4.5 CALCIUM CORRECTED 9.2 mg/dL 8.5-10.1 Encounters ACCT No. Visit Date/Time Discharge Status Pt. Type Provider Facility Loc./Unit Complaint [id number] 08/07/2019 11:20:00 ACT Outpatient XIANG VERGARA [id number] 07/29/2019 09:00:00 Document Registration [id number] 07/14/2019 12:15:00 Document Registration [id number] 08/10/2019 16:58:00 18:40:00 DIS Emergency NANCY SMILEY APRN [facility] ER R SIDE PAIN [id number] 08/01/2019 20:02:00 21:16:00 DIS Outpatient NANCY SMILEY APRN [facility] ER LOW BACK PAIN [id number] 07/15/2019 22:10:00 00:43:00 DIS Outpatient HIGINIO ENAMORADO DO, [facility] ER HEADACHE,DIZZY [id number] 06/07/2019 19:17:00 20:19:00 DIS Emergency YAMILET CLAY [facility] ER L KNEE PAIN [id number] 04/11/2019 12:28:00 14:39:00 DIS Emergency OBEDYAMILET MillerP [facility] ER KIDNEY PAIN
== END 2019-08-10 18:40 | disposition home or self-care (01) ==
LOC: EDUNIT# 16:56 → ER 16:58
DX: R10.9 Unspecified abdominal pain (principal); R73.9 Hyperglycemia, unspecified; Z79.84 Long term (current) use of oral hypoglycemic drugs; Z88.0 Allergy status to penicillin; Z88.5 Allergy status to narcotic agent; Z88.1 Allergy status to other antibiotic agents
CPT/HCPCS: 36415; 74178; 80053; 81000; 84703; 85025